=== PATIENT | male | born 1945 | race Caucasian/White ===

== ENCOUNTER 2021-08-06 09:05 | Inpatient (IN) | payer OTHER, MEDICARE ==
[~2021-08-06] VITALS: Ht 193 cm; Wt 120.0 kg
[~2021-08-06 09:05] MED LIST: ALPR0.257 PO; ASPI-611 PO; ATOR40TA71 PO; CYCL-1 PO; DILT180C90 PO; LISI10TA27 PO; MELO-102 PO; METF500T PO; METO50TA17 PO; MULT-687 PO; NITR0.4T51 SL; SERT-434 PO
[2021-08-06] MEDS ORDERED: acetaminophen 325mg tablet PO STA (10:53)
[2021-08-06] MEDS ORDERED: normal saline 1000ML IV soln IV ONE (10:55)
[2021-08-06 11:10] LABS: BASOPHILS % (AUTO) 0.1 % (0-1); EOSINOPHILS % (AUTO) 0 % (0-6); HEMATOCRIT 43.6 % (42.0-52.0); HEMOGLOBIN 14.5 g/dl (14.0-17.9); LYMPHOCYTES # (AUTO) 0.3 X10'3 (1.1-4.8); LYMPHOCYTES % (AUTO) 3.6 % (21-51); MEAN CORPUSCULAR HEMOGLOBIN 30.2 PG (27.0-31.0); MEAN CORPUSCULAR HGB CONC 33.3 g/dL (33.0-36.5); MEAN CORPUSCULAR VOLUME 90.9 FL (78-98); MEAN PLATELET VOLUME 9.3 FL (7.4-10.4); MONOCYTES # (AUTO) 0.9 X10'3 (0-0.9); MONOCYTES % (AUTO) 12.9 % (2-12); NEUTROPHILS # (AUTO) 5.8 X10'3 (1.8-7.7); NEUTROPHILS % (AUTO) 83.4 % (42-75); PLATELET COUNT 240 X10'3 (140-440); RED CELL DISTRIBUTION WIDTH 13.9 % (11.5-14.5)
[2021-08-06] MEDS ORDERED: ondansetron/PF 4mg/2ml inj IV ONE (11:20)
[2021-08-06 11:27] LABS: ALANINE AMINOTRANSFERASE 17 U/L (12-78); ALBUMIN 3.5 G/DL (3.4-5.0); ALBUMIN/GLOBULIN RATIO 0.8 (1.1-1.5); ALKALINE PHOSPHATASE 71 IU/L (46-116); ANION GAP 13 (8-16); ASPARTATE AMINO TRANSFERASE 11 U/L (10-37); BILIRUBIN,TOTAL 0.9 MG/DL (0.1-1.0); BLOOD UREA NITROGEN 62 MG/DL (7-18); BUN/CREATININE RATIO 23.5 (5.4-32.0); CALCIUM 9.2 MG/DL (8.5-10.1); CHLORIDE 102 MMOL/L (99-107); CREATININE 2.64 MG/DL (0.60-1.10); GLUCOSE 199 MG/DL (70-104); POTASSIUM 4.3 MMOL/L (3.5-5.1); SODIUM 141 MMOL/L (135-145); TOTAL CARBON DIOXIDE 26.2 MMOL/L (24-32); TOTAL PROTEIN 7.7 G/DL (6.4-8.2); eGFR 24 ML/MIN
[2021-08-06] MEDS ORDERED: metroNIDAZOLE-Flagyl 500mg/NS 100 ML IV STA (13:02)
[2021-08-06] MEDS ORDERED: CefTRIAXone 2gm/D5W 50ml BAG 50 ML IV ONE (13:05)
[2021-08-06] MEDS ORDERED: QUET100T34 PO (13:36)
[2021-08-06] MEDS ORDERED: HYDR-3973 PO (13:36)
[2021-08-06] MEDS ORDERED: LISI20TA28 PO (13:36)
[2021-08-06] MEDS ORDERED: NITR0.4T51 SL (13:36)
[2021-08-06] MEDS ORDERED: METO-395 PO (13:36)
[2021-08-06] MEDS ORDERED: nitroGLYCERIN 0.4mg SUBLingual tab SL PRN (14:15)
[2021-08-06] MEDS ORDERED: magnesium Cl slow-release 64mg tablet PO PRN (14:30)
[2021-08-06] MEDS ORDERED: magnesium 4gm in 100ml NS 100 ML IV PRN (14:30)
[2021-08-06] MEDS ORDERED: magnesium hydroxide 30ml (MOM) UD suspension PO PRN (14:30)
[2021-08-06] MEDS ORDERED: ondansetron/PF 4mg/2ml inj IV PRN (14:30)
[2021-08-06] MEDS ORDERED: bisacodyl 10mg suppository rectal RC PRN (14:30)
[2021-08-06] MEDS ORDERED: diphenhydrAMINE 25mg capsule PO PRN (14:30)
[2021-08-06] MEDS ORDERED: acetaminophen 325mg tablet PO PRN ×2 (14:30)
[2021-08-06] MEDS ORDERED: HYDROcodone/acetaminophen 10/325mg tab PO PRN (14:30)
[2021-08-06] MEDS ORDERED: acetaminophen 650mg rectal suppository RC PRN (14:30)
[2021-08-06] MEDS ORDERED: morphine 2 MG/ML inj. syringe IV PRN (14:30)
[2021-08-06] MEDS ORDERED: potassium Cl 40MEQ/1/2NS 520ml 520 ML IV PRN ×2 (14:30)
[2021-08-06] MEDS ORDERED: mag hydrox/Alum hydrox/simeth 30ml oral suspension PO PRN (14:30)
[2021-08-06] MEDS ORDERED: magnesium 2GM in 50ml NS 50 ML IV PRN (14:30)
[2021-08-06] MEDS ORDERED: potassium Cl 20 mEq SR tablet PO PRN ×2 (14:30)
[2021-08-06] MEDS ORDERED: HYDROcodone/acetaminophen 5mg/325mg tablet PO PRN (14:30)
[2021-08-06 15:11] LABS: HEMOGLOBIN A1C 6.1 % (4.5-6.2)
[2021-08-06] MEDS ORDERED: LIDOcaine 2% 10ml TOPICAL JELLY (Urojet) MM STA (17:22)
[2021-08-06] MEDS ORDERED: FLU VACC QS2021-22(6MOS UP)/PF 60 MCG/0.5 ML SYRINGE IM ONE (17:23)
--- NOTE | 2021-08-06 17:49 | NUR ---
attempted to insert NG tube to right nostril however as RN was advancing the tube,pateint started projectile vomiting,primary RN made aware,no prn for nausea and vomiting. Lamberto GLASGOW.
[2021-08-06] MEDS: normal saline 1000ml 1,000 ML IV SCH (18:17)
[2021-08-06] MEDS ORDERED: metoclopramide 5 mg/ml inj IV ONE (19:00)
[2021-08-06] MEDS ORDERED: metoclopramide 5 mg/ml inj IV PRN (19:00)
--- NOTE | 2021-08-06 19:02 | NUR ---
spoke with Dr. ray,made aware about patient's projectile vomiting after attempting ng placement.Md said he will order reglan.
--- NOTE | 2021-08-06 19:38 | NUR ---
NG Tube placed Left Nostril: 1000 mL of gastric output.
--- NOTE | 2021-08-06 19:40 | NUR ---
Pt report given to NUZHAT Fuentes. Pt is now being transported to the floor.
--- NOTE | 2021-08-06 19:41 | NUR ---
Received report from [facility]. Patient to arrive soon to unit.
--- NOTE | 2021-08-06 19:50 | NUR ---
Patient arrived from the ER via gurney. Patient transferred over to bed and NG suction hooked back up. 750cc dark green bile immediately suctioned to canister. Patients had accompanied patient and collected most of his belongings up to take home. 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
[2021-08-06] MEDS: docusate sod 100mg capsule PO SCH (20:00)
[2021-08-06] MEDS: K and/or MAG REPLACEMENT MC SCH (20:00)
[2021-08-06 20:05] VITALS: BP 86/50
[2021-08-06 20:10] VITALS: BP 93/55
[2021-08-06] MEDS: diatr meglu/diatrizoate 30ml oral sol.-(3 dose) bottle PO SCH (23:19)
[2021-08-06] MEDS: quetiapine 100mg tablet PO SCH (23:19)
[2021-08-06] MEDS: heparin, porcine 5000 units/ml vial SQ SCH (23:20)
[2021-08-06] MEDS: metroNIDAZOLE-Flagyl 500mg/NS 100 ML IV SCH (23:20)
[2021-08-06 23:30] VITALS: BP 134/72
[2021-08-07] MEDS: normal saline 1000ml 1,000 ML IV SCH ×3 (00:30→21:14)
[2021-08-07 00:55] LABS: CLARITY,URINE SLIGHTLY CLOUDY (Clear); COLOR,URINE YELLOW (Yellow); UA COLLECTION TYPE URINAL
[2021-08-07 00:56] LABS: GLUCOSE, URINE NEGATIVE (Neg); KETONES,URINE NEGATIVE (Neg); LEUKOCYTE ESTERASE ,URINE NEGATIVE (Neg); NITRITES, URINE NEGATIVE (Neg); OCCULT BLOOD,URINE NEGATIVE (Neg); PROTEIN,URINE TRACE mg/dl (Neg); UROBILINOGEN,URINE 0.2 E.U/dL (0.2-1.0)
--- NOTE | 2021-08-07 01:00 | NUR ---
Urine sample taken down to lab.
[2021-08-07 01:04] LABS: URIC ACID CRYSTALS FEW /HPF (NEGATIVE)
[2021-08-07 01:05] LABS: BACTERIA,URINE 1+ /HPF (Neg); RBC,URINE 0-2 /HPF (0-2); SQUAMOUS EPITHELIAL CELL,UR FEW /LPF (FEW)
--- NOTE | 2021-08-07 06:45 | NUR ---
Problems reprioritized. Patient report given, questions answered & plan of care reviewed with Colleen NOLAND.
[2021-08-07 07:00] VITALS: BP 146/86
[2021-08-07 07:07] LABS: BASOPHILS % (AUTO) 0.1 % (0-1); EOSINOPHILS % (AUTO) 0.1 % (0-6); HEMATOCRIT 36.8 % (42.0-52.0); HEMOGLOBIN 12.4 g/dl (14.0-17.9); LYMPHOCYTES # (AUTO) 0.4 X10'3 (1.1-4.8); LYMPHOCYTES % (AUTO) 5.8 % (21-51); MEAN CORPUSCULAR HEMOGLOBIN 30.6 PG (27.0-31.0); MEAN CORPUSCULAR HGB CONC 33.7 g/dL (33.0-36.5); MEAN CORPUSCULAR VOLUME 90.6 FL (78-98); MEAN PLATELET VOLUME 9.8 FL (7.4-10.4); MONOCYTES # (AUTO) 0.6 X10'3 (0-0.9); MONOCYTES % (AUTO) 8.1 % (2-12); NEUTROPHILS # (AUTO) 5.9 X10'3 (1.8-7.7); NEUTROPHILS % (AUTO) 85.9 % (42-75); PLATELET COUNT 174 X10'3 (140-440); RED BLOOD COUNT 4.06 X10'6 (4.70-6.10); RED CELL DISTRIBUTION WIDTH 14.2 % (11.5-14.5); WHITE BLOOD COUNT 6.8 X10'3 (4.5-11.0)
--- NOTE | 2021-08-07 07:07 | NUR ---
Patient in room [facility] 355. I have received report from Delphine NOLAND and had the opportunity to ask questions and assume patient care.
[2021-08-07 07:23] LABS: ALANINE AMINOTRANSFERASE 11 U/L (12-78); ALBUMIN 2.5 G/DL (3.4-5.0); ALBUMIN/GLOBULIN RATIO 0.7 (1.1-1.5); ALKALINE PHOSPHATASE 51 IU/L (46-116); ANION GAP 10 (8-16); ASPARTATE AMINO TRANSFERASE 8 U/L (10-37); BILIRUBIN,TOTAL 0.5 MG/DL (0.1-1.0); BLOOD UREA NITROGEN 67 MG/DL (7-18); BUN/CREATININE RATIO 33.2 (5.4-32.0); CALCIUM 8.1 MG/DL (8.5-10.1); CHLORIDE 107 MMOL/L (99-107); CHOL/HDL RATIO 2.8 (0.00-4.99); CHOLESTEROL 104 MG/DL (0-200); CREATININE 2.02 MG/DL (0.60-1.10); GLUCOSE 184 MG/DL (70-104); HDL CHOLESTEROL 37 MG/DL (35-60); LDL CHOLESTEROL 44 MG/DL (50-100); MAGNESIUM 2.1 MG/DL (1.5-2.4); POTASSIUM 3.6 MMOL/L (3.5-5.1); SODIUM 145 MMOL/L (135-145); TOTAL CARBON DIOXIDE 27.6 MMOL/L (24-32); TOTAL PROTEIN 5.9 G/DL (6.4-8.2); TRIGLYCERIDES 98 MG/DL (20-135); eGFR 32 ML/MIN
[2021-08-07 07:36] LABS: PLATELET ESTIMATE NORMAL; TOTAL CELLS COUNTED 100
[2021-08-07] MEDS: K and/or MAG REPLACEMENT MC SCH ×2 (08:00→20:00)
[2021-08-07] MEDS: lisinopril 20mg tablet PO SCH (08:00)
[2021-08-07] MEDS ORDERED: Meloxicam 15 MG TAB PO SCH (08:00)
[2021-08-07] MEDS: heparin, porcine 5000 units/ml vial SQ SCH ×2 (08:00→21:15)
[2021-08-07] MEDS ORDERED: aspirin 81mg, enteric-coated 1 TAB TABLET.DR PO SCH (08:00)
[2021-08-07] MEDS: docusate sod 100mg capsule PO SCH ×2 (08:00→20:00)
[2021-08-07] MEDS ORDERED: atorvastatin 20mg tablet PO SCH (08:00)
[2021-08-07] MEDS: diatr meglu/diatrizoate 30ml oral sol.-(3 dose) bottle PO SCH ×2 (08:02→10:33)
[2021-08-07] MEDS: multivitamins, therapeutics tablet PO SCH (08:02)
[2021-08-07] MEDS: metoprolol succinate 25mg (24-HOUR) SR. Tablet PO SCH (08:02)
[2021-08-07] MEDS: diltiazem CD 180mg cap (once-daily) PO SCH (08:02)
[2021-08-07] MEDS: CefTRIAXone/D5W-Rocephin 1gm 50 ML IV SCH (08:03)
[2021-08-07] MEDS: metroNIDAZOLE-Flagyl 500mg/NS 100 ML IV SCH ×3 (08:04→23:56)
[2021-08-07 11:00] VITALS: BP 143/81
--- NOTE | 2021-08-07 14:25 | NUR ---
PAGER ID: [phone] MESSAGE: Indra Merchant 355B- FYI - Ct results are available, also orthostatic are as follow Supine-132/82 HR 96, Standing 78/45 HR 112. Thank you Colleen Bernard [id number] Surgical
[2021-08-07] MEDS: sertraline 50mg tablet PO SCH (14:45)
--- NOTE | 2021-08-07 17:54 | NUR ---
PAGER ID: [phone] MESSAGE: Indra Merchant 355B- Pt's family at bed side, upset and want to speak to you about plan of care, CT results. Please advise. Thank you so much. Colleen Bernard 2016
--- NOTE | 2021-08-07 18:36 | NUR ---
Problems reprioritized. Patient report given, questions answered & plan of care reviewed with Paulo NOLAND.
--- NOTE | 2021-08-07 18:45 | NUR ---
Patient in room [facility] 355. I have received report from Colleen NOLAND and had the opportunity to ask questions and assume patient care.
[2021-08-07 20:22] VITALS: BP 131/83
[2021-08-07] MEDS: quetiapine 100mg tablet PO SCH (21:15)
[2021-08-08] VITALS (7 sets, daily range): BP systolic 88–185; BP diastolic 51–91
[2021-08-08 06:19] LABS: BASOPHILS % (AUTO) 0.2 % (0-1); EOSINOPHILS # (AUTO) 0.1 X10'3 (0-0.9); EOSINOPHILS % (AUTO) 2.3 % (0-6); HEMATOCRIT 36.1 % (42.0-52.0); HEMOGLOBIN 12.5 g/dl (14.0-17.9); LYMPHOCYTES # (AUTO) 0.7 X10'3 (1.1-4.8); LYMPHOCYTES % (AUTO) 11.7 % (21-51); MEAN CORPUSCULAR HEMOGLOBIN 30.7 PG (27.0-31.0); MEAN CORPUSCULAR HGB CONC 34.5 g/dL (33.0-36.5); MEAN PLATELET VOLUME 9.5 FL (7.4-10.4); MONOCYTES # (AUTO) 0.7 X10'3 (0-0.9); NEUTROPHILS # (AUTO) 4.3 X10'3 (1.8-7.7); NEUTROPHILS % (AUTO) 73.8 % (42-75); PLATELET COUNT 179 X10'3 (140-440); RED BLOOD COUNT 4.05 X10'6 (4.70-6.10); WHITE BLOOD COUNT 5.8 X10'3 (4.5-11.0)
[2021-08-08 06:34] LABS: ALANINE AMINOTRANSFERASE 12 U/L (12-78); ALBUMIN 2.3 G/DL (3.4-5.0); ALBUMIN/GLOBULIN RATIO 0.6 (1.1-1.5); ALKALINE PHOSPHATASE 47 IU/L (46-116); ANION GAP 4 (8-16); ASPARTATE AMINO TRANSFERASE 11 U/L (10-37); BILIRUBIN,TOTAL 0.5 MG/DL (0.1-1.0); BLOOD UREA NITROGEN 45 MG/DL (7-18); BUN/CREATININE RATIO 38.1 (5.4-32.0); CALCIUM 8.5 MG/DL (8.5-10.1); CHLORIDE 108 MMOL/L (99-107); CREATININE 1.18 MG/DL (0.60-1.10); GLUCOSE 140 MG/DL (70-104); MAGNESIUM 2.2 MG/DL (1.5-2.4); PHOSPHORUS 1.8 MG/DL (2.3-4.5); POTASSIUM 3.2 MMOL/L (3.5-5.1); SODIUM 147 MMOL/L (135-145); TOTAL PROTEIN 5.9 G/DL (6.4-8.2); eGFR 60 ML/MIN
--- NOTE | 2021-08-08 07:05 | NUR ---
Problems reprioritized. Patient report given, questions answered & plan of care reviewed with Nancy NOLAND.
--- NOTE | 2021-08-08 07:14 | NUR ---
Sent message to Pharmacy to send IV replacement K+ bag for level of 3.2
--- NOTE | 2021-08-08 07:27 | NUR ---
Patient in room [facility] 355. I have received report from Paulo NOLAND and had the opportunity to ask questions and assume patient care.
[2021-08-08] MEDS: lisinopril 20mg tablet PO SCH (08:00)
[2021-08-08] MEDS: diltiazem CD 180mg cap (once-daily) PO SCH (08:00)
[2021-08-08] MEDS: K and/or MAG REPLACEMENT MC SCH ×2 (08:00→19:09)
--- NOTE | 2021-08-08 08:53 | NUR ---
PAGER ID: [phone] MESSAGE: [facility] Please call re + BC, + orthostatics, BP meds.
[2021-08-08] MEDS: docusate sod 100mg capsule PO SCH ×2 (08:56→20:00)
[2021-08-08] MEDS: sertraline 50mg tablet PO SCH (08:56)
[2021-08-08] MEDS: multivitamins, therapeutics tablet PO SCH (08:56)
[2021-08-08] MEDS: heparin, porcine 5000 units/ml vial SQ SCH ×2 (08:59→20:38)
[2021-08-08] MEDS: metroNIDAZOLE-Flagyl 500mg/NS 100 ML IV SCH ×2 (08:59→16:29)
[2021-08-08] MEDS: normal saline 1000ml 1,000 ML IV SCH ×2 (09:19→16:44)
--- NOTE | 2021-08-08 10:01 | NUR ---
PAGER ID: [phone] MESSAGE: Nancy-Surg [id number] Re: Mayur 355B please call re: pain medications with his + orthostatics and questions re: BP medications
[2021-08-08] MEDS ORDERED: albumin (Human) 5% 250ml 250 ML IV ONE ×2 (10:10)
[2021-08-08] MEDS: CefTRIAXone/D5W-Rocephin 1gm 50 ML IV SCH (10:18)
--- NOTE | 2021-08-08 10:30 | NUR ---
Clamped NG Tube per MD orders
--- NOTE | 2021-08-08 10:35 | NUR ---
PAGER ID: [phone] MESSAGE: Nancy Surg [id number] Re: Mayur 355B Patient is currently in AFIB with no history held BP meds this am due to + orthostatics. please call
[2021-08-08] MEDS ORDERED: diltiazem-NS 100mg/100ml 100 ML IV SCH (11:20)
[2021-08-08] MEDS ORDERED: benzocaine/menthol oral lozeng 1 EACH BOX MM PRN (11:20)
[2021-08-08] MEDS ORDERED: normal saline 500ml IV soln 500 ML IV ONE (11:20)
[2021-08-08] MEDS ORDERED: diltiazem 5mg/ml 5ml inj. IV ONE (11:20)
[2021-08-08] MEDS: metoprolol succinate 25mg (24-HOUR) SR. Tablet PO SCH (11:25)
--- NOTE | 2021-08-08 12:36 | NUR ---
Dr Guzman aware distilling department supervisor is working on a bed on Tele so patients Cardizem drip has not been started.
[2021-08-08] MEDS: vancomycin/NS 1 GM ADD-VANTAGE 250 ML IV SCH (12:58)
--- NOTE | 2021-08-08 14:55 | NUR ---
Patient report called to Merced NOLAND all questions answered. Patient transferred via hospital bed with all his belongings and at bedside.
--- NOTE | 2021-08-08 15:00 | NUR ---
Patient in room [facility] 355. I have received report from Nancy NOLAND and had the opportunity to ask questions and assume patient care. Patient is transferring from surg to pcu.
--- NOTE | 2021-08-08 15:44 | NUR ---
Pt arrived from [facility] by bed. A&OX4, first set of vitals done, 2 RN skin check done.
--- NOTE | 2021-08-08 15:47 | NUR ---
Paged Dr Guzman PAGER ID: [phone] MESSAGE: Leyla MerchantIndra [id number] Pt just arrived from med/surg, hooked up to tele and is in sinus rhythm HR 80's. Please advise regarding Cardizem orders. Thank you Selene [phone]
--- NOTE | 2021-08-08 17:10 | NUR ---
Paged Dr Carlos to discuss NG tube. NG tube was clamped for 4 hours, unclamped for 2 hours and had a total of 50ml output on continuous low suction.
--- NOTE | 2021-08-08 18:12 | NUR ---
[place] Medication Administration: For this medication-pass time frame, all medication were reviewed, dispensed, administered and documented per hospital policy by NUZHAT Blackwood.
--- NOTE | 2021-08-08 18:12 | NUR ---
[place] documentation: I have reviewed and agree with all interventions, assessments performed and documented by NUZHAT Blackwood.
--- NOTE | 2021-08-08 18:24 | NUR ---
Problems reprioritized. Patient report given, questions answered & plan of care reviewed with NUZHAT Perry. Pt sitting up in bedside chair. No signs of distress, all pt needs met at this time.
--- NOTE | 2021-08-08 18:24 | NUR ---
Problems reprioritized. Patient report given, questions answered & plan of care reviewed with Veronica Dudley.
[2021-08-08] MEDS: quetiapine 100mg tablet PO SCH (20:38)
[2021-08-09] MEDS: vancomycin/NS 1 GM ADD-VANTAGE 250 ML IV SCH ×2 (00:20→13:00)
[2021-08-09] MEDS: morphine 2 MG/ML inj. syringe IV PRN ×2 (00:20→09:22)
--- NOTE | 2021-08-09 00:33 | NUR ---
210cc output at only 3hrs of low continuous suction of NG tube. Per Dr. Barron if output is greater than 150cc at 4hrs. keep NG in place and keep on low continuous suction. pt states he is passing gas and did have a BM at start of shift that was loose. bowel sounds are hypoactive in all quadrants.
[2021-08-09] MEDS: metroNIDAZOLE-Flagyl 500mg/NS 100 ML IV SCH ×2 (00:35→09:23)
--- NOTE | 2021-08-09 01:14 | NUR ---
Pt says he is depressed about having >150cc of output in suction canister. He was redirected using therapeutic communication.
[2021-08-09 02:00] VITALS: BP 167/79
[2021-08-09] MEDS: normal saline 1000ml 1,000 ML IV SCH ×2 (02:13→05:59)
--- NOTE | 2021-08-09 05:51 | NUR ---
620cc output total (in 8hrs) from NG low continuous suction since suction was initiated at 2145.
[2021-08-09 06:00] VITALS: BP 153/80
--- NOTE | 2021-08-09 06:22 | NUR ---
Patient in room PCU 3018. I have received report from NUZHAT Miranda and had the opportunity to ask questions and assume patient care.
[2021-08-09 06:33] LABS: BASOPHILS % (AUTO) 0.2 % (0-1); EOSINOPHILS # (AUTO) 0.2 X10'3 (0-0.9); EOSINOPHILS % (AUTO) 2.2 % (0-6); HEMATOCRIT 34.8 % (42.0-52.0); HEMOGLOBIN 11.8 g/dl (14.0-17.9); LYMPHOCYTES # (AUTO) 0.9 X10'3 (1.1-4.8); LYMPHOCYTES % (AUTO) 10.9 % (21-51); MEAN CORPUSCULAR HEMOGLOBIN 30.5 PG (27.0-31.0); MEAN CORPUSCULAR VOLUME 89.7 FL (78-98); MEAN PLATELET VOLUME 9.4 FL (7.4-10.4); MONOCYTES # (AUTO) 0.5 X10'3 (0-0.9); MONOCYTES % (AUTO) 6.6 % (2-12); NEUTROPHILS # (AUTO) 6.4 X10'3 (1.8-7.7); NEUTROPHILS % (AUTO) 80.1 % (42-75); PLATELET COUNT 197 X10'3 (140-440); RED BLOOD COUNT 3.89 X10'6 (4.70-6.10); RED CELL DISTRIBUTION WIDTH 13.7 % (11.5-14.5)
[2021-08-09 07:02] LABS: ALANINE AMINOTRANSFERASE 12 U/L (12-78); ALBUMIN 2.6 G/DL (3.4-5.0); ALBUMIN/GLOBULIN RATIO 0.8 (1.1-1.5); ALKALINE PHOSPHATASE 58 IU/L (46-116); ANION GAP 6 (8-16); ASPARTATE AMINO TRANSFERASE 10 U/L (10-37); BILIRUBIN,TOTAL 0.5 MG/DL (0.1-1.0); BLOOD UREA NITROGEN 33 MG/DL (7-18); BUN/CREATININE RATIO 32.4 (5.4-32.0); CALCIUM 8.5 MG/DL (8.5-10.1); CHLORIDE 112 MMOL/L (99-107); CREATININE 1.02 MG/DL (0.60-1.10); GLUCOSE 125 MG/DL (70-104); MAGNESIUM 2.2 MG/DL (1.5-2.4); PHOSPHORUS 1.8 MG/DL (2.3-4.5); POTASSIUM 3.7 MMOL/L (3.5-5.1); SODIUM 152 MMOL/L (135-145); TOTAL CARBON DIOXIDE 34.4 MMOL/L (24-32); TOTAL PROTEIN 5.9 G/DL (6.4-8.2); eGFR 71 ML/MIN
[2021-08-09 08:00] VITALS: BP_SYST 135; BP_SYST 156; BP_SYST 163; BP_DIAS 85; BP_DIAS 86; BP_DIAS 95
[2021-08-09] MEDS: docusate sod 100mg capsule PO SCH ×2 (08:00→20:51)
[2021-08-09] MEDS: K and/or MAG REPLACEMENT MC SCH ×2 (08:00→20:00)
[2021-08-09] MEDS: metoprolol succinate 25mg (24-HOUR) SR. Tablet PO SCH (09:19)
[2021-08-09] MEDS: multivitamins, therapeutics tablet PO SCH (09:19)
[2021-08-09] MEDS: sertraline 50mg tablet PO SCH (09:19)
[2021-08-09] MEDS: heparin, porcine 5000 units/ml vial SQ SCH (09:23)
[2021-08-09] MEDS: CefTRIAXone/D5W-Rocephin 1gm 50 ML IV SCH (09:24)
[2021-08-09] MEDS: diltiazem CD 180mg cap (once-daily) PO SCH (09:28)
[2021-08-09 11:00] VITALS: BP 163/85
--- NOTE | 2021-08-09 12:06 | NUR ---
Informed Dr Gumzan of pt SBP variance during orthostatic vital check: PAGER ID: [phone] MESSAGE: Gregor Merchant [id number] FYI pt positive for orthostatic hypotension again today total SBP variance 28 mm hg. Sharon [phone]
[2021-08-09] MEDS: dextrose 5%-water 1,000 ML IV SCH (14:40)
[2021-08-09 15:00] VITALS: BP 142/72
--- NOTE | 2021-08-09 16:22 | NUR ---
Paged Dr. Guzman re: patient diet: PAGER ID: [phone] MESSAGE: Gregor Merchant [id number] NG is out and pt is requesting food. Would you like to add a diet at this time? Sharon [phone]
[2021-08-09] MEDS: piperacillin/tazobactam inj. 3.375 GM in NS 50ml IV SCH (16:57)
--- NOTE | 2021-08-09 18:14 | NUR ---
Problems reprioritized. Patient report given, questions answered & plan of care reviewed with NUZHAT Snyder.
[2021-08-09 20:00] VITALS: BP 161/80
[2021-08-09] MEDS: apixaban 5mg tablet PO SCH (20:51)
[2021-08-09] MEDS: quetiapine 100mg tablet PO SCH (20:51)
[2021-08-09] MEDS ORDERED: VANCOMYCIN LEVEL IV ONE (23:30)
[2021-08-10] VITALS (7 sets, daily range): BP systolic 113–152; BP diastolic 54–95
[2021-08-10] MEDS: piperacillin/tazobactam inj. 3.375 GM in NS 50ml IV SCH ×4 (00:31→23:58)
[2021-08-10] MEDS: vancomycin/NS 1 GM ADD-VANTAGE 250 ML IV SCH ×2 (00:54→13:30)
[2021-08-10] MEDS: dextrose 5%-water 1,000 ML IV SCH (05:40)
--- NOTE | 2021-08-10 05:44 | NUR ---
End of shift note: Pt. w/o complaints through out the night. Patient's abdomen was firm in the beginning of my shift. However, has soften throughout the night. Pt. passing flatus.
--- NOTE | 2021-08-10 06:24 | NUR ---
Patient in room PCU 3018. I have received report from NUZHAT Westbrook and had the opportunity to ask questions and assume patient care.
[2021-08-10 06:25] LABS: BASOPHILS % (AUTO) 0.1 % (0-1); EOSINOPHILS # (AUTO) 0.5 X10'3 (0-0.9); HEMATOCRIT 32.3 % (42.0-52.0); LYMPHOCYTES % (AUTO) 10.6 % (21-51); MEAN CORPUSCULAR HEMOGLOBIN 30.6 PG (27.0-31.0); MEAN CORPUSCULAR HGB CONC 34.1 g/dL (33.0-36.5); MEAN CORPUSCULAR VOLUME 89.6 FL (78-98); MEAN PLATELET VOLUME 9.3 FL (7.4-10.4); MONOCYTES # (AUTO) 0.6 X10'3 (0-0.9); NEUTROPHILS # (AUTO) 7.7 X10'3 (1.8-7.7); NEUTROPHILS % (AUTO) 78.3 % (42-75); PLATELET COUNT 189 X10'3 (140-440); RED BLOOD COUNT 3.61 X10'6 (4.70-6.10); RED CELL DISTRIBUTION WIDTH 13.9 % (11.5-14.5); WHITE BLOOD COUNT 9.8 X10'3 (4.5-11.0)
[2021-08-10 06:59] LABS: ALANINE AMINOTRANSFERASE 7 U/L (12-78); ALBUMIN 2.3 G/DL (3.4-5.0); ALBUMIN/GLOBULIN RATIO 0.8 (1.1-1.5); ALKALINE PHOSPHATASE 44 IU/L (46-116); ANION GAP 7 (8-16); ASPARTATE AMINO TRANSFERASE 10 U/L (10-37); BILIRUBIN,TOTAL 0.5 MG/DL (0.1-1.0); BLOOD UREA NITROGEN 25 MG/DL (7-18); BUN/CREATININE RATIO 26.9 (5.4-32.0); CALCIUM 8.2 MG/DL (8.5-10.1); CHLORIDE 110 MMOL/L (99-107); CREATININE 0.93 MG/DL (0.60-1.10); GLUCOSE 138 MG/DL (70-104); MAGNESIUM 1.9 MG/DL (1.5-2.4); PHOSPHORUS 2.5 MG/DL (2.3-4.5); SODIUM 149 MMOL/L (135-145); TOTAL CARBON DIOXIDE 32.1 MMOL/L (24-32); TOTAL PROTEIN 5.3 G/DL (6.4-8.2); eGFR 79 ML/MIN
[2021-08-10] MEDS ORDERED: potassium Cl 40MEQ/1/2NS 520ml 520 ML IV PRN ×2 (07:05)
[2021-08-10] MEDS ORDERED: potassium Cl 20 mEq SR tablet PO PRN (07:05)
--- NOTE | 2021-08-10 07:09 | NUR ---
[facility] Will replace pt per protocol.
[2021-08-10] MEDS: sertraline 50mg tablet PO SCH (07:51)
[2021-08-10] MEDS: potassium Cl 20 mEq SR tablet PO PRN ×2 (07:51→20:19)
[2021-08-10] MEDS: multivitamins, therapeutics tablet PO SCH (07:52)
[2021-08-10] MEDS: apixaban 5mg tablet PO SCH ×2 (07:52→20:18)
[2021-08-10] MEDS: diltiazem CD 180mg cap (once-daily) PO SCH (07:52)
[2021-08-10] MEDS: metoprolol succinate 25mg (24-HOUR) SR. Tablet PO SCH (07:52)
[2021-08-10] MEDS: docusate sod 100mg capsule PO SCH ×3 (08:00→20:18)
[2021-08-10] MEDS: K and/or MAG REPLACEMENT MC SCH ×5 (08:00→18:45)
[2021-08-10] MEDS ORDERED: magnesium 4gm in 100ml NS 100 ML IV PRN (10:45)
[2021-08-10] MEDS ORDERED: magnesium Cl slow-release 64mg tablet PO PRN (10:45)
[2021-08-10] MEDS: lactobacillus rhamnosus 10,000 MMU CELLS/CAPSULE PO SCH (20:18)
[2021-08-10] MEDS: quetiapine 100mg tablet PO SCH (20:18)
[2021-08-10] MEDS: diatr meglu/diatrizoate 30ml oral sol.-(3 dose) bottle PO SCH (23:58)
[2021-08-11] MEDS: dextrose 5%-water 1,000 ML IV SCH (01:40)
[2021-08-11 02:00] VITALS: BP 124/76
[2021-08-11 06:00] VITALS: BP 127/79
--- NOTE | 2021-08-11 06:28 | NUR ---
Problems reprioritized. Patient report given, questions answered & plan of care reviewed with NUZHAT Argueta.
[2021-08-11 06:44] LABS: BASOPHILS % (AUTO) 0.2 % (0-1); EOSINOPHILS # (AUTO) 0.7 X10'3 (0-0.9); EOSINOPHILS % (AUTO) 6.1 % (0-6); HEMATOCRIT 38.2 % (42.0-52.0); HEMOGLOBIN 12.6 g/dl (14.0-17.9); LYMPHOCYTES # (AUTO) 1.8 X10'3 (1.1-4.8); LYMPHOCYTES % (AUTO) 15.5 % (21-51); MEAN CORPUSCULAR HEMOGLOBIN 29.9 PG (27.0-31.0); MEAN CORPUSCULAR HGB CONC 33.1 g/dL (33.0-36.5); MEAN CORPUSCULAR VOLUME 90.4 FL (78-98); MEAN PLATELET VOLUME 9.5 FL (7.4-10.4); MONOCYTES # (AUTO) 0.9 X10'3 (0-0.9); MONOCYTES % (AUTO) 7.3 % (2-12); NEUTROPHILS # (AUTO) 8.4 X10'3 (1.8-7.7); NEUTROPHILS % (AUTO) 70.9 % (42-75); PLATELET COUNT 228 X10'3 (140-440); RED BLOOD COUNT 4.22 X10'6 (4.70-6.10); RED CELL DISTRIBUTION WIDTH 13.8 % (11.5-14.5); WHITE BLOOD COUNT 11.8 X10'3 (4.5-11.0)
[2021-08-11 06:48] LABS: ALANINE AMINOTRANSFERASE 22 U/L (12-78); ALBUMIN 2.6 G/DL (3.4-5.0); ALBUMIN/GLOBULIN RATIO 0.8 (1.1-1.5); ALKALINE PHOSPHATASE 63 IU/L (46-116); ANION GAP 10 (8-16); ASPARTATE AMINO TRANSFERASE 28 U/L (10-37); BILIRUBIN,TOTAL 0.4 MG/DL (0.1-1.0); BLOOD UREA NITROGEN 17 MG/DL (7-18); BUN/CREATININE RATIO 15.7 (5.4-32.0); CALCIUM 8.6 MG/DL (8.5-10.1); CHLORIDE 110 MMOL/L (99-107); CREATININE 1.08 MG/DL (0.60-1.10); GLUCOSE 134 MG/DL (70-104); MAGNESIUM 1.8 MG/DL (1.5-2.4); PHOSPHORUS 2.9 MG/DL (2.3-4.5); POTASSIUM 3.8 MMOL/L (3.5-5.1); SODIUM 146 MMOL/L (135-145); TOTAL CARBON DIOXIDE 26.5 MMOL/L (24-32); TOTAL PROTEIN 5.9 G/DL (6.4-8.2); eGFR 66 ML/MIN
[2021-08-11] MEDS: diatr meglu/diatrizoate 30ml oral sol.-(3 dose) bottle PO SCH ×2 (07:28→09:53)
[2021-08-11] MEDS: piperacillin/tazobactam inj. 3.375 GM in NS 50ml IV SCH ×2 (07:28→16:40)
[2021-08-11] MEDS: diltiazem CD 180mg cap (once-daily) PO SCH (07:28)
[2021-08-11] MEDS: multivitamins, therapeutics tablet PO SCH (07:29)
[2021-08-11] MEDS: docusate sod 100mg capsule PO SCH ×2 (07:29→20:09)
[2021-08-11] MEDS: metoprolol succinate 25mg (24-HOUR) SR. Tablet PO SCH (07:29)
[2021-08-11] MEDS: apixaban 5mg tablet PO SCH ×2 (07:29→20:09)
[2021-08-11] MEDS: lactobacillus rhamnosus 10,000 MMU CELLS/CAPSULE PO SCH ×2 (07:29→20:09)
[2021-08-11] MEDS: sertraline 50mg tablet PO SCH (07:30)
[2021-08-11] MEDS: K and/or MAG REPLACEMENT MC SCH ×6 (07:31→20:00)
--- NOTE | 2021-08-11 10:30 | NUR ---
Initial: Pt admitted w/ increasing abd pain and vomiting, found to have SBO per EMR; no surgical intervention at this time. Pt on Full liquid diet 08/10 eating 100%; recommend advance to regular diet per MD discretion. LBM 08/10. Will continue to monitor PO trend upon diet advancement and make recommendations as appropriate. Recs: 1. Advance to Regular diet per MD discretion 2. Bowel care per rx 3. Weekly wts Addendum: 08/11/21 at [address] Amended: Links added.
[2021-08-11 12:00] VITALS: BP_SYST 119; BP_SYST 137; BP_SYST 150; BP_DIAS 71; BP_DIAS 78
[2021-08-11 15:00] VITALS: BP 163/99
[2021-08-11 18:00] VITALS: BP 145/92
--- NOTE | 2021-08-11 18:30 | NUR ---
Report given to Traveler RN, all questions answered. No current concerns, no distress. pt doing well. Waiting for dinner tray.
[2021-08-11] MEDS: quetiapine 100mg tablet PO SCH (20:15)
[2021-08-11 22:00] VITALS: BP 145/88
[2021-08-12] MEDS: piperacillin/tazobactam inj. 3.375 GM in NS 50ml IV SCH ×2 (00:40→07:53)
[2021-08-12 02:00] VITALS: BP 156/86
[2021-08-12 06:00] VITALS: BP 155/92
[2021-08-12] MEDS: sertraline 50mg tablet PO SCH (07:54)
[2021-08-12] MEDS: apixaban 5mg tablet PO SCH (07:55)
[2021-08-12] MEDS: metoprolol succinate 25mg (24-HOUR) SR. Tablet PO SCH (07:55)
[2021-08-12] MEDS: docusate sod 100mg capsule PO SCH (07:55)
[2021-08-12] MEDS: diltiazem CD 180mg cap (once-daily) PO SCH (07:55)
[2021-08-12] MEDS: multivitamins, therapeutics tablet PO SCH (07:55)
[2021-08-12] MEDS: lactobacillus rhamnosus 10,000 MMU CELLS/CAPSULE PO SCH (07:55)
[2021-08-12] MEDS: K and/or MAG REPLACEMENT MC SCH ×3 (07:57→07:58)
[2021-08-12 08:00] VITALS: BP_SYST 126; BP_SYST 130; BP_SYST 135; BP_DIAS 86; BP_DIAS 94; BP_DIAS 97
[2021-08-12] MEDS: lisinopril 20mg tablet PO SCH (08:23)
[2021-08-12 11:00] VITALS: BP 126/74
[2021-08-12] MEDS ORDERED: CIPR-202 PO (11:58)
[2021-08-12] MEDS ORDERED: LACT1CAP26 PO (11:58)
[2021-08-12] MEDS ORDERED: METR-159 PO (11:58)
[2021-08-12] MEDS ORDERED: APIX5TAB3 PO (11:58)
--- NOTE | 2021-08-12 13:45 | NUR ---
Patient stable and comfortable at time of discharge, removed telemetry and PIV with cannula intact. No redness or irritation at PIV site. Gathered all patient valuables in a bag and gave to patient at discharge. 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 Gave and discussed in detail all patient discharge information and discharge education. Patient and family member were able to ask questions and get answers regarding patient discharge information and discharge education. Patient and family member were able to verbalize back all patient discharge information and discharge education. Patient was wheeled to lobby in wheelchair by staff accompanied by family member. Patient left hospital in private car with family member, valuables, and patient discharge information and discharge education
== END 2021-08-12 13:45 | disposition home or self-care (01) | DRG 872 ==
LOC: ER 09:06 → ED HOLD 14:49 → SUR 3N 19:50 → PCU 3S 08-08 15:00
PROVIDERS: ADMIT Family Medicine; ATTEND Family Medicine
PROC: 0D9670Z Drainage of Stomach with Drainage Device, Via Natural or Artificial Opening (ICD-10-PCS; principal; 2021-08-07)
DX: A41.9 Sepsis, unspecified organism (principal); K56.600 Partial intestinal obstruction, unspecified as to cause; E87.0 Hyperosmolality and hypernatremia; N17.9 Acute kidney failure, unspecified; I69.351 Hemiplegia and hemiparesis following cerebral infarction affecting right dominant side; E78.00 Pure hypercholesterolemia, unspecified; K52.9 Noninfective gastroenteritis and colitis, unspecified; I10 Essential (primary) hypertension; Z20.822 Contact with and (suspected) exposure to COVID-19; E86.0 Dehydration; E78.5 Hyperlipidemia, unspecified; I25.10 Atherosclerotic heart disease of native coronary artery without angina pectoris; I48.0 Paroxysmal atrial fibrillation; I69.392 Facial weakness following cerebral infarction; Z68.32 Body mass index [BMI] 32.0-32.9, adult; Z88.0 Allergy status to penicillin; Z79.899 Other long term (current) drug therapy
CPT/HCPCS: 36415; 71045; 74176; 80053; 80061; 80202; 81001; 83036; 83605; 83735; 84100; 84132; 84145; 84443; 85007; 85025; 87040; 87077; 87081; 87088; 87635; 93005; 96361; 96374; 96375; 97110; 97161; 97530; 99285; C9803; G0378; J0696; J1644; J2270; J2405; J2543; J2765; J3370; J3480; J3490; J7030; J7040; J7070; P9045; Q9963

== ENCOUNTER 2022-03-01 14:30 | Inpatient (IN) | payer BC, MEDICARE ==
[~2022-03-01] VITALS: Ht 193 cm; Wt 133.2 kg
[~2022-03-01 14:30] MED LIST changes: -ALPR0.257 PO; -ASPI-611 PO; -CYCL-1 PO; +HYDR-3973 PO; -LISI10TA27 PO; -MELO-102 PO; -METF500T PO; -METO50TA17 PO; +QUET100T34 PO; +RIVA20TA PO
--- NOTE | 2022-03-01 15:22 | NUR ---
PATIENT DENIES CHEST PAIN AT THIS TIME,CALL LIGHT WITHIN REACH.
[2022-03-01 15:46] LABS: BASOPHILS % (AUTO) 0.2 % (0-1); EOSINOPHILS # (AUTO) 0.1 X10'3 (0-0.9); EOSINOPHILS % (AUTO) 1.6 % (0-6); HEMATOCRIT 31.3 % (42.0-52.0); HEMOGLOBIN 10.3 g/dl (14.0-17.9); LYMPHOCYTES # (AUTO) 0.4 X10'3 (1.1-4.8); LYMPHOCYTES % (AUTO) 5.1 % (21-51); MEAN CORPUSCULAR HGB CONC 32.8 g/dL (33.0-36.5); MEAN CORPUSCULAR VOLUME 91.6 FL (78-98); MEAN PLATELET VOLUME 8.4 FL (7.4-10.4); MONOCYTES # (AUTO) 0.6 X10'3 (0-0.9); MONOCYTES % (AUTO) 7.5 % (2-12); NEUTROPHILS % (AUTO) 85.6 % (42-75); PLATELET COUNT 214 X10'3 (140-440); RED BLOOD COUNT 3.42 X10'6 (4.70-6.10); RED CELL DISTRIBUTION WIDTH 18.1 % (11.5-14.5); WHITE BLOOD COUNT 8.1 X10'3 (4.5-11.0)
--- NOTE | 2022-03-01 15:49 | NUR ---
SPOUSE AT BEDSIDE.
[2022-03-01 15:59] LABS: ALANINE AMINOTRANSFERASE 13 U/L (12-78); ALBUMIN 1.9 G/DL (3.4-5.0); ALBUMIN/GLOBULIN RATIO 0.4 (1.1-1.5); ALKALINE PHOSPHATASE 161 IU/L (46-116); ANION GAP 5 (8-16); ASPARTATE AMINO TRANSFERASE 24 U/L (10-37); BILIRUBIN,TOTAL 0.8 MG/DL (0.1-1.0); BLOOD UREA NITROGEN 39 MG/DL (7-18); BUN/CREATININE RATIO 6.6 (5.4-32.0); CALCIUM 8.8 MG/DL (8.5-10.1); CHLORIDE 96 MMOL/L (99-107); CREATININE 5.94 MG/DL (0.60-1.10); GLUCOSE 101 MG/DL (70-104); POTASSIUM 5.8 MMOL/L (3.5-5.1); SODIUM 128 MMOL/L (135-145); TOTAL CARBON DIOXIDE 27.4 MMOL/L (24-32); TOTAL PROTEIN 6.5 G/DL (6.4-8.2); eGFR 9 ML/MIN
[2022-03-01] MEDS ORDERED: HYDROmorphone 2mg tablet PO STA (16:25)
--- NOTE | 2022-03-01 17:25 | NUR ---
NON BLANCHABLE REDNESS TO SACRAL AREA, SKIN STILL INTACT,PT TURNED TO RIGHT SIDE.DAUGHTER AT BEDSIDE.
[2022-03-01] MEDS ORDERED: magnesium 4gm in 100ml NS 100 ML IV PRN (20:25)
[2022-03-01] MEDS ORDERED: acetaminophen 325mg tablet PO PRN ×2 (20:25)
[2022-03-01] MEDS ORDERED: diphenhydrAMINE 25mg capsule PO PRN (20:25)
[2022-03-01] MEDS ORDERED: HYDROcodone/acetaminophen 5mg/325mg tablet PO PRN (20:25)
[2022-03-01] MEDS ORDERED: magnesium hydroxide 30ml (MOM) UD suspension PO PRN (20:25)
[2022-03-01] MEDS ORDERED: magnesium Cl slow-release 64mg tablet PO PRN (20:25)
[2022-03-01] MEDS ORDERED: acetaminophen 650mg rectal suppository RC PRN (20:25)
[2022-03-01] MEDS ORDERED: POTASSIUM BICARB 20meq eff tab 20 MEQ TABLET.EFF PO PRN ×2 (20:25)
[2022-03-01] MEDS ORDERED: bisacodyl 10mg suppository rectal RC PRN (20:25)
[2022-03-01] MEDS ORDERED: ondansetron/PF 4mg/2ml inj IV PRN (20:25)
[2022-03-01] MEDS ORDERED: potassium CL 10mEq/100ml bag 100 ML IV PRN (20:25)
[2022-03-01] MEDS ORDERED: magnesium 2GM in 50ml NS 50 ML IV PRN (20:25)
[2022-03-01] MEDS ORDERED: mag hydrox/Alum hydrox/simeth 30ml oral suspension PO PRN (20:25)
[2022-03-01] MEDS ORDERED: HYDROcodone/acetaminophen 10/325mg tab PO PRN (20:25)
[2022-03-01] MEDS ORDERED: morphine 2 MG/ML inj. syringe IV PRN (20:25)
--- NOTE | 2022-03-01 20:40 | NUR ---
PT AND FAMILY WISH TO HAVE MORE INFORMATION ABOUT OBTAINING A GI TUBE. PT LASHANDALEY EATS PER FAMILY. PT AGREED TO EXPLORE OPTIONS AND WANTS TO TALK TO A DOCTOR ABOUT IT.
[2022-03-01] MEDS ORDERED: temazepam 15mg capsule PO PRN (21:00)
[2022-03-01] MEDS ORDERED: NYSPWD TOP (21:20)
[2022-03-01] MEDS ORDERED: PANT-47 PO (21:20)
[2022-03-01] MEDS ORDERED: [UNRECOGNIZED DRUG - CODE] IV (21:20)
[2022-03-01] MEDS ORDERED: METO25TA6 PO (21:20)
[2022-03-01] MEDS ORDERED: AMIO400T5 PO (21:24)
[2022-03-01] MEDS ORDERED: SERT100T PO (21:24)
[2022-03-01] MEDS ORDERED: HYDR1LIQ3 PO (21:26)
[2022-03-01] MEDS: K and/or MAG REPLACEMENT MC SCH (22:40)
--- NOTE | 2022-03-01 22:45 | NUR ---
PT COMPLAING OF 7/10 PAIN STATES HIS BACK AND COCCYX HURT BUT HE IS "ALWAYS IN PAIN" REQUESTED DILAUDID FOR PAIN AND STATES IT ALSO HELPS HIM WITH HIS ANXIETY.
[2022-03-01] MEDS: HYDROmorphone 2mg tablet PO PRN (22:49)
--- NOTE | 2022-03-01 22:50 | NUR ---
PT'S DAUGHTER STATES SHE DOES NOT WANT HIM TO STAY IN A GURNEY DUE TO HAVING A DECUBITIS ULCER. REQUESTED HOSPITAL BED FROM [facility]
[2022-03-02] MEDS ORDERED: QUET25TA36 PO
[2022-03-02] MEDS ORDERED: OXYC1TAB17 PO
[2022-03-02] MEDS ORDERED: APIX5TAB3 PO
[2022-03-02] MEDS ORDERED: ALB0.5UD INH
[2022-03-02] MEDS ORDERED: AMLO2.5T2 PO
[2022-03-02] MEDS ORDERED: ACET325T PO
[2022-03-02] MEDS ORDERED: POLY17PO59 PO
[2022-03-02] MEDS ORDERED: MELA3TAB39 PO
[2022-03-02] MEDS ORDERED: EPOE10008 IV
[2022-03-02] MEDS ORDERED: [UNRECOGNIZED DRUG - CODE] IV
[2022-03-02] MEDS ORDERED: DOCU283E2 PR
[2022-03-02] MEDS ORDERED: SERT-153 PO (00:14)
[2022-03-02] MEDS ORDERED: ASPI-100 PO (00:14)
[2022-03-02] MEDS ORDERED: oxyCODONE/APAP 10/325mg tablet PO PRN (00:20)
[2022-03-02] MEDS ORDERED: albuterol 2.5 MG/3 ML nebule NEB PRN (00:30)
--- NOTE | 2022-03-02 06:07 | NUR ---
pt repositioned onto R side to alleviate pressure on coccyx. pt stated he still did not need to urinate.
--- NOTE | 2022-03-02 06:45 | NUR ---
Pt sleeping, no apparent distress or needs at this time.
[2022-03-02] MEDS: aspirin 325mg tablet PO SCH (07:56)
[2022-03-02] MEDS: docusate sod 100mg capsule PO SCH ×2 (07:56→20:00)
[2022-03-02] MEDS: QUEtiapine 25mg tablet PO SCH ×2 (07:57→21:42)
[2022-03-02] MEDS: pantoprazole 40mg Tablet.DR PO SCH (07:57)
[2022-03-02] MEDS: amLODIPine 2.5mg tablet PO SCH (07:58)
[2022-03-02] MEDS: metoprolol tartrate 25mg tablet PO SCH ×2 (07:58→21:43)
[2022-03-02] MEDS: sertraline 50mg tablet PO SCH (07:59)
--- NOTE | 2022-03-02 08:00 | NUR ---
Harrison jeff in ED - 03/02/22 at 0943 by [email or web address] Assessed pt. Assisted pt with using a urinal. Pt requesting pt medication. Will give pt Dilaudid for pain control
[2022-03-02] MEDS: HYDROmorphone 2mg tablet PO PRN ×3 (08:14→21:43)
--- NOTE | 2022-03-02 08:16 | NUR ---
Assessed pt this morning. Pt in Afib on monitor, states pain 6/10, gave Dilaudid PO, turned and repositioned pt. Pt has a central line in R chest, pt states it was from recent surgery.
--- NOTE | 2022-03-02 08:20 | NUR ---
Pt refused morning breakfast. Has been taking sips of water.
--- NOTE | 2022-03-02 09:33 | NUR ---
Pt had a large liquid brown foul smelling stool. Pt cleaned up and linens changed. Sample taken to lab.
--- NOTE | 2022-03-02 09:34 | NUR ---
Pt's lungs sound wet. Pt states cough is not new, but has had it "since all this happened."
--- NOTE | 2022-03-02 09:35 | NUR ---
Also, perineal area is red and inflammed. Diaper applied. dressing on buttocks still C/D/I.
[2022-03-02] MEDS ORDERED: acetaminophen 325mg tablet PO PRN (09:45)
[2022-03-02] MEDS ORDERED: EPOETIN ALFA-EPBX 20,000 UNIT/ML 1 ML MDV IV PRN (09:45)
[2022-03-02] MEDS ORDERED: DOCUSATE SODIUM PR PRN (09:45)
[2022-03-02] MEDS ORDERED: polyethylene glycol 3350 17gm powd pack PO PRN (09:45)
[2022-03-02 10:38] LABS: ALANINE AMINOTRANSFERASE 10 U/L (12-78); ALBUMIN 1.8 G/DL (3.4-5.0); ALBUMIN/GLOBULIN RATIO 0.4 (1.1-1.5); ALKALINE PHOSPHATASE 141 IU/L (46-116); ANION GAP 10 (8-16); ASPARTATE AMINO TRANSFERASE 23 U/L (10-37); BASOPHILS % (AUTO) 0.2 % (0-1); BILIRUBIN,TOTAL 0.9 MG/DL (0.1-1.0); BLOOD UREA NITROGEN 49 MG/DL (7-18); BUN/CREATININE RATIO 7.1 (5.4-32.0); CALCIUM 8.9 MG/DL (8.5-10.1); CHLORIDE 93 MMOL/L (99-107); CHOL/HDL RATIO 4.2 (0.00-4.99); CHOLESTEROL 147 MG/DL (0-200); CREATININE 6.88 MG/DL (0.60-1.10); EOSINOPHILS # (AUTO) 0.1 X10'3 (0-0.9); EOSINOPHILS % (AUTO) 0.7 % (0-6); GLUCOSE 82 MG/DL (70-104); HDL CHOLESTEROL 35 MG/DL (35-60); HEMOGLOBIN 9.5 g/dl (14.0-17.9); LDL CHOLESTEROL 83 MG/DL (50-100); LYMPHOCYTES # (AUTO) 0.3 X10'3 (1.1-4.8); MEAN CORPUSCULAR HEMOGLOBIN 30.2 PG (27.0-31.0); MEAN CORPUSCULAR HGB CONC 32.8 g/dL (33.0-36.5); MEAN PLATELET VOLUME 8.5 FL (7.4-10.4); MONOCYTES # (AUTO) 0.6 X10'3 (0-0.9); MONOCYTES % (AUTO) 6.8 % (2-12); NEUTROPHILS # (AUTO) 8.1 X10'3 (1.8-7.7); NEUTROPHILS % (AUTO) 89.3 % (42-75); PHOSPHORUS 7.2 MG/DL (2.3-4.5); PLATELET COUNT 196 X10'3 (140-440); RED BLOOD COUNT 3.16 X10'6 (4.70-6.10); RED CELL DISTRIBUTION WIDTH 17.9 % (11.5-14.5); SODIUM 127 MMOL/L (135-145); TOTAL CARBON DIOXIDE 24.1 MMOL/L (24-32); TOTAL PROTEIN 6.1 G/DL (6.4-8.2); TRIGLYCERIDES 106 MG/DL (20-135); WHITE BLOOD COUNT 9.1 X10'3 (4.5-11.0); eGFR 8 ML/MIN
[2022-03-02 10:39] LABS: POTASSIUM 6.5 MMOL/L (3.5-5.1)
--- NOTE | 2022-03-02 10:44 | NUR ---
Paged Dr Guzman- ER bed 1. [place]- Critical lab: K+6.5. We have order for Kayexalate, do you want anything else? Daphne [phone]
[2022-03-02] MEDS: amiodarone 200mg tablet PO SCH (10:50)
[2022-03-02] MEDS ORDERED: sodium polystyrene sulfonate 15gm/60ml oral suspension PO ONE (11:00)
[2022-03-02 11:06] LABS: C DIFF SPECIMEN=DIARRHEA? ACCEPTABLE; C DIFFICILE TOXINS A&B NEGATIVE (Neg)
[2022-03-02] MEDS ORDERED: heparin 10,000 units/1 ML INJ IV PRN (11:35)
[2022-03-02] MEDS: HYDROmorphone 1mg tablet (1/2 of 2mg tablet) PO SCH ×3 (12:00→20:00)
[2022-03-02 12:43] LABS: APTT 37 SECONDS (22-32)
--- NOTE | 2022-03-02 12:44 | NUR ---
Patient in room ED 1. I have received report from Geraldine NOLAND and had the opportunity to ask questions and assume patient care.
[2022-03-02 12:45] LABS: BASOPHILS % (AUTO) 0.2 % (0-1); EOSINOPHILS # (AUTO) 0.1 X10'3 (0-0.9); EOSINOPHILS % (AUTO) 0.6 % (0-6); HEMATOCRIT 28.3 % (42.0-52.0); HEMOGLOBIN 9.2 g/dl (14.0-17.9); LYMPHOCYTES # (AUTO) 0.2 X10'3 (1.1-4.8); LYMPHOCYTES % (AUTO) 2.8 % (21-51); MEAN CORPUSCULAR HEMOGLOBIN 29.6 PG (27.0-31.0); MEAN CORPUSCULAR HGB CONC 32.6 g/dL (33.0-36.5); MEAN PLATELET VOLUME 8.2 FL (7.4-10.4); MONOCYTES # (AUTO) 0.6 X10'3 (0-0.9); NEUTROPHILS # (AUTO) 7.9 X10'3 (1.8-7.7); NEUTROPHILS % (AUTO) 89.4 % (42-75); PLATELET COUNT 198 X10'3 (140-440); RED BLOOD COUNT 3.11 X10'6 (4.70-6.10); RED CELL DISTRIBUTION WIDTH 17.8 % (11.5-14.5); WHITE BLOOD COUNT 8.8 X10'3 (4.5-11.0)
--- NOTE | 2022-03-02 13:05 | NUR ---
PER DR. SELF START HEPARIN GTT WITHOUT LOADING DOSE
[2022-03-02 13:08] VITALS: BP 132/71
[2022-03-02] MEDS: heparin 25,000 UNIT/250ml bag 250 ML IV SCH (13:08)
[2022-03-02] MEDS ORDERED: EPOETIN ALFA-EPBX 20,000 UNIT/ML 1 ML MDV IV ONE (14:55)
[2022-03-02] MEDS ORDERED: heparin 1,000 units/ml 10ml inj IV ONE (14:55)
[2022-03-02] MEDS ORDERED: heparin 1,000unit/ml 10ml vial 10 ML IV ONE (14:55)
[2022-03-02] MEDS ORDERED: albumin (human) 25% 100ml IV 100 ML IV PRN (14:55)
[2022-03-02] MEDS ORDERED: heparin 1,000 units/ml 10ml inj HE ONE ×2 (14:55)
[2022-03-02 15:00] VITALS: BP 128/78
[2022-03-02 18:00] VITALS: BP 132/76
--- NOTE | 2022-03-02 18:09 | NUR ---
Problems reprioritized. Patient report given, questions answered & plan of care reviewed with Ha RN. Patient resting in bed in no acute distress. HD in progress. HD RN and at bedside.
[2022-03-02] MEDS: K and/or MAG REPLACEMENT MC SCH (18:33)
[2022-03-02] MEDS: nystatin 15 GM powder TP SCH (20:00)
[2022-03-02] MEDS: Melatonin 3mg tablet PO SCH (21:43)
[2022-03-02 22:00] VITALS: BP 129/64
[2022-03-03 02:00] VITALS: BP 121/65
[2022-03-03] MEDS: HYDROmorphone 1mg tablet (1/2 of 2mg tablet) PO SCH ×5 (04:35→16:34)
[2022-03-03 05:57] LABS: BASOPHILS % (AUTO) 0.2 % (0-1); EOSINOPHILS # (AUTO) 0.1 X10'3 (0-0.9); EOSINOPHILS % (AUTO) 2.1 % (0-6); HEMATOCRIT 28.4 % (42.0-52.0); HEMOGLOBIN 9.1 g/dl (14.0-17.9); LYMPHOCYTES # (AUTO) 0.3 X10'3 (1.1-4.8); LYMPHOCYTES % (AUTO) 6.5 % (21-51); MEAN CORPUSCULAR HEMOGLOBIN 30.3 PG (27.0-31.0); MEAN CORPUSCULAR HGB CONC 32.1 g/dL (33.0-36.5); MEAN CORPUSCULAR VOLUME 94.4 FL (78-98); MEAN PLATELET VOLUME 8.1 FL (7.4-10.4); MONOCYTES # (AUTO) 0.5 X10'3 (0-0.9); MONOCYTES % (AUTO) 9.9 % (2-12); NEUTROPHILS # (AUTO) 4.2 X10'3 (1.8-7.7); NEUTROPHILS % (AUTO) 81.3 % (42-75); PLATELET COUNT 177 X10'3 (140-440); RED CELL DISTRIBUTION WIDTH 18.4 % (11.5-14.5); WHITE BLOOD COUNT 5.2 X10'3 (4.5-11.0)
[2022-03-03 06:21] LABS: ALANINE AMINOTRANSFERASE 12 U/L (12-78); ALBUMIN 1.7 G/DL (3.4-5.0); ALBUMIN/GLOBULIN RATIO 0.4 (1.1-1.5); ALKALINE PHOSPHATASE 169 IU/L (46-116); ANION GAP 6 (8-16); ASPARTATE AMINO TRANSFERASE 21 U/L (10-37); BILIRUBIN,TOTAL 0.7 MG/DL (0.1-1.0); BLOOD UREA NITROGEN 30 MG/DL (7-18); CALCIUM 8.1 MG/DL (8.5-10.1); CHLORIDE 97 MMOL/L (99-107); CREATININE 5.04 MG/DL (0.60-1.10); GLUCOSE 103 MG/DL (70-104); MAGNESIUM 1.8 MG/DL (1.5-2.4); PHOSPHORUS 6.3 MG/DL (2.3-4.5); POTASSIUM 4.5 MMOL/L (3.5-5.1); SODIUM 131 MMOL/L (135-145); TOTAL CARBON DIOXIDE 28.2 MMOL/L (24-32); TOTAL PROTEIN 5.9 G/DL (6.4-8.2); eGFR 11 ML/MIN
[2022-03-03 07:00] VITALS: BP 115/62
[2022-03-03] MEDS: docusate sod 100mg capsule PO SCH ×2 (08:00→19:39)
[2022-03-03] MEDS: K and/or MAG REPLACEMENT MC SCH ×2 (08:00→18:36)
[2022-03-03] MEDS: amLODIPine 2.5mg tablet PO SCH (08:34)
[2022-03-03] MEDS: amiodarone 200mg tablet PO SCH (08:34)
[2022-03-03] MEDS: sertraline 50mg tablet PO SCH (08:34)
[2022-03-03] MEDS: metoprolol tartrate 25mg tablet PO SCH ×2 (08:34→19:46)
[2022-03-03] MEDS: aspirin 325mg tablet PO SCH (08:35)
[2022-03-03] MEDS: nystatin 15 GM powder TP SCH ×2 (08:35→19:46)
[2022-03-03] MEDS: pantoprazole 40mg Tablet.DR PO SCH (08:35)
[2022-03-03] MEDS: QUEtiapine 25mg tablet PO SCH ×2 (08:35→19:45)
--- NOTE | 2022-03-03 10:53 | NUR ---
page to echo #2 [id number]. Pt has order for echo. Thanks Denise [phone]
[2022-03-03 11:00] VITALS: BP 113/77
--- NOTE | 2022-03-03 11:57 | NUR ---
page to Seth Lynne regarding angiogram: [phone] Miles. Does pt need to be NPO for angiogram this afternoon? Denise [phone]
[2022-03-03] MEDS: heparin 25,000 UNIT/250ml bag 250 ML IV SCH (12:38)
--- NOTE | 2022-03-03 13:23 | NUR ---
PRESSURE ULCER EDUCATION: DEFINITION: A pressure ulcer is an area of skin that breaks down when you stay in one position too long. The constant pressure against the skin reduces the blood flow to that area and the affected tissue dies. CAUSES: "Being bedridden or in a wheelchair "Fragile skin "Having a chronic condition, such as diabetes or vascular disease "Inability to move certain parts of your body without assistance "Older age "Incontinence of urine or stool SYMPTOMS: "A reddened area that DOES NOT turn white when pressed on - this can be the beginning of a pressure ulcer "A blister, deep sore or a crater - these can be advanced pressure ulcers FIRST AID: "Relieve the pressure on this area "Keep the area clean and dry "Call your primary doctor if you see any of the above symptoms "DO NOT massage the area "DO NOT use a donut shaped or ring shaped pillow- these actually interfere with the blood flow and cause complications PREVENTION: "Check for pressure ulcers everyday "Change position at least every two hours to relieve pressure "Use items that help relieve pressure- pillows, sheepskin, foam padding, and powders. "Keep skin clean and dry "Eat healthy well balanced meals "Exercise daily IF YOU SEE ANY OF THESE SYMPTOMS WHILE IN THE HOSPITAL - TELL YOUR NURSE IMMEDIATELY. IF YOU SEE ANY OF THESE SYMPTOMS WHILE AT HOME OR HAVE ANY QUESTIONS OR CONCERNS ABOUT PRESSURE ULCERS - CALL YOUR PRIMARY DOCTOR IMMEDIATELY. Addendum: 03/03/22 at 1324 by Viry Bella LVN Amended: Links added.
--- NOTE | 2022-03-03 13:27 | NUR ---
Malnutrition consult: Pt admitted w/ NSTEMI and ESRD on HD per EMR. Pt was at this hospital very recently w/ initial course on 01/31. Since that time, pt had very poor PO intake of meals and developed malnutrition. Pt still meets minimum criteria for malnutrition given insufficient PO intake for 1 month and mild muscle weakness, MD notified. RN states that pt was eating a little better this admit, apparently his brought him pizza which he ate well. Currently on Renal diet w/ 0% intake of first meal and 25% intake of first. RN states that pt had at least 75% of breakfast this morning. Recommend liberalizing to Regular diet given hx of very poor PO intake. Pt continues on HD, last treatment 03/02 w/ 2L out per documentation. Noted pt's bed scale wt on 02/28 was 97kg, current wt likely inaccurate. Pt also noted w/ open wound to sacrum, WOC pending. Will continue to monitor. Recs; 1. Liberalize to Regular diet in view of prolonged poor PO intake 2. Monitor need for ONS pending further PO trends; pt does not like Nepro 3. Bowel care per rx 4. Scaled wts w/ HD Addendum: 03/03/22 at [address] Amended: Links added.
[2022-03-03 15:00] VITALS: BP 107/58
[2022-03-03] MEDS ORDERED: HYDROmorphone 2mg tablet PO PRN (16:56)
[2022-03-03 18:00] VITALS: BP 115/72
--- NOTE | 2022-03-03 18:17 | NUR ---
Problems reprioritized. Patient report given, questions answered & plan of care reviewed with Ha NOLAND. Pt in no acute distress.
[2022-03-03] MEDS: apixaban 5mg tablet PO SCH (19:45)
[2022-03-03] MEDS: Melatonin 3mg tablet PO SCH (19:46)
[2022-03-03 22:00] VITALS: BP 121/68
[2022-03-04 02:00] VITALS: BP 111/71
[2022-03-04 06:04] LABS: BASOPHILS % (AUTO) 0.2 % (0-1); EOSINOPHILS # (AUTO) 0.2 X10'3 (0-0.9); EOSINOPHILS % (AUTO) 3.1 % (0-6); HEMATOCRIT 27.1 % (42.0-52.0); LYMPHOCYTES # (AUTO) 0.4 X10'3 (1.1-4.8); LYMPHOCYTES % (AUTO) 7.1 % (21-51); MEAN CORPUSCULAR HEMOGLOBIN 30.4 PG (27.0-31.0); MEAN CORPUSCULAR HGB CONC 33.3 g/dL (33.0-36.5); MEAN CORPUSCULAR VOLUME 91.6 FL (78-98); MEAN PLATELET VOLUME 8.4 FL (7.4-10.4); MONOCYTES # (AUTO) 0.6 X10'3 (0-0.9); NEUTROPHILS # (AUTO) 3.9 X10'3 (1.8-7.7); NEUTROPHILS % (AUTO) 78.6 % (42-75); PLATELET COUNT 178 X10'3 (140-440); RED BLOOD COUNT 2.96 X10'6 (4.70-6.10); RED CELL DISTRIBUTION WIDTH 18.2 % (11.5-14.5)
[2022-03-04 06:21] LABS: ALANINE AMINOTRANSFERASE 12 U/L (12-78); ALBUMIN 1.8 G/DL (3.4-5.0); ALBUMIN/GLOBULIN RATIO 0.4 (1.1-1.5); ALKALINE PHOSPHATASE 173 IU/L (46-116); ANION GAP 8 (8-16); ASPARTATE AMINO TRANSFERASE 19 U/L (10-37); BILIRUBIN,TOTAL 0.6 MG/DL (0.1-1.0); BLOOD UREA NITROGEN 39 MG/DL (7-18); BUN/CREATININE RATIO 6.4 (5.4-32.0); CALCIUM 8.5 MG/DL (8.5-10.1); CHLORIDE 92 MMOL/L (99-107); CREATININE 6.09 MG/DL (0.60-1.10); GLUCOSE 111 MG/DL (70-104); MAGNESIUM 1.7 MG/DL (1.5-2.4); PHOSPHORUS 6.9 MG/DL (2.3-4.5); POTASSIUM 4.5 MMOL/L (3.5-5.1); SODIUM 127 MMOL/L (135-145); TOTAL CARBON DIOXIDE 26.8 MMOL/L (24-32); TOTAL PROTEIN 5.9 G/DL (6.4-8.2); eGFR 9 ML/MIN
[2022-03-04 07:00] VITALS: BP 134/83
[2022-03-04] MEDS: nystatin 15 GM powder TP SCH ×2 (08:00→20:00)
[2022-03-04] MEDS: K and/or MAG REPLACEMENT MC SCH ×2 (08:00→18:53)
[2022-03-04] MEDS: apixaban 5mg tablet PO SCH ×2 (08:58→21:18)
[2022-03-04] MEDS: sertraline 50mg tablet PO SCH (08:59)
[2022-03-04] MEDS: pantoprazole 40mg Tablet.DR PO SCH (08:59)
[2022-03-04] MEDS: atorvastatin 20mg tablet PO SCH ×2 (08:59→21:18)
[2022-03-04] MEDS: amiodarone 200mg tablet PO SCH (08:59)
[2022-03-04] MEDS: QUEtiapine 25mg tablet PO SCH ×2 (08:59→21:21)
[2022-03-04] MEDS: aspirin 81mg tab.chew PO SCH (08:59)
[2022-03-04] MEDS: amLODIPine 2.5mg tablet PO SCH (09:00)
[2022-03-04] MEDS: metoprolol tartrate 25mg tablet PO SCH ×2 (09:00→21:21)
[2022-03-04] MEDS: docusate sod 100mg capsule PO SCH ×2 (09:01→21:18)
[2022-03-04] MEDS ORDERED: heparin 1,000unit/ml 10ml vial 10 ML IV ONE (10:15)
[2022-03-04] MEDS ORDERED: EPOETIN ALFA-EPBX 20,000 UNIT/ML 1 ML MDV IV ONE ×2 (10:15→12:35)
[2022-03-04] MEDS ORDERED: heparin 1,000 units/ml 10ml inj IV ONE (10:15)
[2022-03-04] MEDS ORDERED: heparin 1,000 units/ml 10ml inj HE ONE ×3 (10:20→12:35)
[2022-03-04] MEDS: morphine 10 MG/5 ML UD oral solution PO PRN ×3 (10:33→21:18)
[2022-03-04 11:00] VITALS: BP 106/65
[2022-03-04] MEDS ORDERED: HEPARIN IV ONE ×2 (12:35)
[2022-03-04] MEDS ORDERED: ondansetron 4mg rapidly disintigrating tab PO PRN (13:55)
[2022-03-04 15:00] VITALS: BP 121/82
[2022-03-04 18:00] VITALS: BP 116/62
--- NOTE | 2022-03-04 18:23 | NUR ---
Problems reprioritized. Patient report given, questions answered & plan of care reviewed with Ha RN. Patient resting in no acute distress.
[2022-03-04] MEDS: Melatonin 3mg tablet PO SCH (21:18)
[2022-03-04 22:00] VITALS: BP 122/71
[2022-03-05 02:00] VITALS: BP 118/65
[2022-03-05 06:00] VITALS: BP 114/77
[2022-03-05 06:02] LABS: BASOPHILS % (AUTO) 0.3 % (0-1); EOSINOPHILS # (AUTO) 0.1 X10'3 (0-0.9); EOSINOPHILS % (AUTO) 2.8 % (0-6); HEMATOCRIT 28.5 % (42.0-52.0); HEMOGLOBIN 9.3 g/dl (14.0-17.9); LYMPHOCYTES # (AUTO) 0.4 X10'3 (1.1-4.8); LYMPHOCYTES % (AUTO) 8.7 % (21-51); MEAN CORPUSCULAR HEMOGLOBIN 30.4 PG (27.0-31.0); MEAN CORPUSCULAR HGB CONC 32.6 g/dL (33.0-36.5); MEAN PLATELET VOLUME 8.1 FL (7.4-10.4); MONOCYTES # (AUTO) 0.6 X10'3 (0-0.9); MONOCYTES % (AUTO) 11.4 % (2-12); NEUTROPHILS % (AUTO) 76.8 % (42-75); PLATELET COUNT 197 X10'3 (140-440); RED BLOOD COUNT 3.06 X10'6 (4.70-6.10); RED CELL DISTRIBUTION WIDTH 18.3 % (11.5-14.5); WHITE BLOOD COUNT 5.2 X10'3 (4.5-11.0)
[2022-03-05 06:21] LABS: ALANINE AMINOTRANSFERASE 15 U/L (12-78); ALBUMIN 1.8 G/DL (3.4-5.0); ALBUMIN/GLOBULIN RATIO 0.4 (1.1-1.5); ALKALINE PHOSPHATASE 167 IU/L (46-116); ANION GAP 2 (8-16); ASPARTATE AMINO TRANSFERASE 20 U/L (10-37); BILIRUBIN,TOTAL 0.6 MG/DL (0.1-1.0); BLOOD UREA NITROGEN 22 MG/DL (7-18); BUN/CREATININE RATIO 5.2 (5.4-32.0); CALCIUM 8.1 MG/DL (8.5-10.1); CHLORIDE 98 MMOL/L (99-107); CREATININE 4.27 MG/DL (0.60-1.10); GLUCOSE 101 MG/DL (70-104); MAGNESIUM 1.7 MG/DL (1.5-2.4); PHOSPHORUS 5.7 MG/DL (2.3-4.5); POTASSIUM 4.1 MMOL/L (3.5-5.1); SODIUM 131 MMOL/L (135-145); TOTAL CARBON DIOXIDE 31.3 MMOL/L (24-32); eGFR 14 ML/MIN
[2022-03-05] MEDS: docusate sod 100mg capsule PO SCH ×2 (08:00→20:23)
[2022-03-05] MEDS: K and/or MAG REPLACEMENT MC SCH ×2 (08:00→20:00)
[2022-03-05] MEDS: QUEtiapine 25mg tablet PO SCH ×2 (08:49→20:23)
[2022-03-05] MEDS: aspirin 81mg tab.chew PO SCH (08:50)
[2022-03-05] MEDS: amiodarone 200mg tablet PO SCH (08:50)
[2022-03-05] MEDS: apixaban 5mg tablet PO SCH ×2 (08:50→20:38)
[2022-03-05] MEDS: sertraline 50mg tablet PO SCH (08:50)
[2022-03-05] MEDS: metoprolol tartrate 25mg tablet PO SCH ×2 (08:51→20:23)
[2022-03-05] MEDS: pantoprazole 40mg Tablet.DR PO SCH (08:51)
[2022-03-05] MEDS: amLODIPine 2.5mg tablet PO SCH (08:51)
[2022-03-05] MEDS: nystatin 15 GM powder TP SCH ×2 (08:56→20:24)
[2022-03-05 11:00] VITALS: BP 129/80
--- NOTE | 2022-03-05 14:40 | NUR ---
Shad Consult: Helio Kulkarni 12 w/ IAD and gluteal sulcus partial thickness area otherwise skin intact per [facility] note. Addendum: 03/05/22 at [address] Amended: Links added.
[2022-03-05 15:00] VITALS: BP 112/69
[2022-03-05 18:00] VITALS: BP 149/89
--- NOTE | 2022-03-05 18:25 | NUR ---
Pt reports of chest tightness. No pain. VS WNL. Will administer nitro.
[2022-03-05] MEDS: nitroGLYCERIN 0.4mg SUBLingual tab SL PRN (18:27)
--- NOTE | 2022-03-05 18:30 | NUR ---
Problems reprioritized. Patient report given, questions answered & plan of care reviewed with NUZHAT Bonner - Ha is aware of chest tightness and was there during VS. .
[2022-03-05] MEDS: Melatonin 3mg tablet PO SCH (20:24)
[2022-03-05] MEDS: morphine 10 MG/5 ML UD oral solution PO PRN (20:25)
[2022-03-05 22:00] VITALS: BP 132/71
[2022-03-06] MEDS: nitroGLYCERIN 0.4mg SUBLingual tab SL PRN (01:10)
[2022-03-06 02:00] VITALS: BP 126/69
[2022-03-06 06:00] VITALS: BP 150/92
[2022-03-06 06:15] LABS: BASOPHILS % (AUTO) 0.3 % (0-1); EOSINOPHILS # (AUTO) 0.2 X10'3 (0-0.9); HEMATOCRIT 27.3 % (42.0-52.0); LYMPHOCYTES # (AUTO) 0.4 X10'3 (1.1-4.8); LYMPHOCYTES % (AUTO) 5.2 % (21-51); MEAN CORPUSCULAR HEMOGLOBIN 30.6 PG (27.0-31.0); MEAN CORPUSCULAR HGB CONC 32.9 g/dL (33.0-36.5); MEAN PLATELET VOLUME 8.2 FL (7.4-10.4); MONOCYTES # (AUTO) 0.6 X10'3 (0-0.9); MONOCYTES % (AUTO) 7.6 % (2-12); NEUTROPHILS # (AUTO) 6.5 X10'3 (1.8-7.7); NEUTROPHILS % (AUTO) 84.9 % (42-75); PLATELET COUNT 204 X10'3 (140-440); RED BLOOD COUNT 2.94 X10'6 (4.70-6.10); RED CELL DISTRIBUTION WIDTH 18.2 % (11.5-14.5); WHITE BLOOD COUNT 7.6 X10'3 (4.5-11.0)
[2022-03-06 06:25] LABS: ALANINE AMINOTRANSFERASE 13 U/L (12-78); ALBUMIN 1.8 G/DL (3.4-5.0); ALBUMIN/GLOBULIN RATIO 0.4 (1.1-1.5); ALKALINE PHOSPHATASE 165 IU/L (46-116); ANION GAP 2 (8-16); ASPARTATE AMINO TRANSFERASE 17 U/L (10-37); BILIRUBIN,TOTAL 0.6 MG/DL (0.1-1.0); BLOOD UREA NITROGEN 31 MG/DL (7-18); BUN/CREATININE RATIO 5.8 (5.4-32.0); CALCIUM 8.2 MG/DL (8.5-10.1); CHLORIDE 92 MMOL/L (99-107); CREATININE 5.32 MG/DL (0.60-1.10); GLUCOSE 111 MG/DL (70-104); MAGNESIUM 1.6 MG/DL (1.5-2.4); PHOSPHORUS 6.6 MG/DL (2.3-4.5); POTASSIUM 5.1 MMOL/L (3.5-5.1); SODIUM 123 MMOL/L (135-145); TOTAL PROTEIN 5.9 G/DL (6.4-8.2); eGFR 11 ML/MIN
[2022-03-06] MEDS ORDERED: normal saline 1000ml 250 ML IV PRN (07:10)
[2022-03-06] MEDS ORDERED: EPOETIN ALFA-EPBX 20,000 UNIT/ML 1 ML MDV IV ONE (07:10)
[2022-03-06] MEDS ORDERED: heparin 1,000unit/ml 10ml vial 10 ML IV ONE (07:10)
[2022-03-06] MEDS ORDERED: heparin 1,000 units/ml 10ml inj HE ONE ×2 (07:15)
[2022-03-06] MEDS: amLODIPine 2.5mg tablet PO SCH (08:00)
[2022-03-06] MEDS: metoprolol tartrate 25mg tablet PO SCH (08:00)
[2022-03-06] MEDS: K and/or MAG REPLACEMENT MC SCH (08:00)
[2022-03-06] MEDS: nystatin 15 GM powder TP SCH (08:00)
[2022-03-06] MEDS: morphine 2 MG/ML inj. syringe IV PRN ×2 (08:12→15:42)
--- NOTE | 2022-03-06 08:15 | NUR ---
Missed dosed BP meds per HD nurse. MD Guzman aware.
[2022-03-06] MEDS: amiodarone 200mg tablet PO SCH (08:17)
[2022-03-06] MEDS: docusate sod 100mg capsule PO SCH (08:17)
[2022-03-06] MEDS: QUEtiapine 25mg tablet PO SCH (08:17)
[2022-03-06] MEDS: sertraline 50mg tablet PO SCH (08:17)
[2022-03-06] MEDS: apixaban 5mg tablet PO SCH (08:17)
[2022-03-06] MEDS: pantoprazole 40mg Tablet.DR PO SCH (08:17)
[2022-03-06] MEDS: atorvastatin 20mg tablet PO SCH (08:17)
[2022-03-06] MEDS: aspirin 81mg tab.chew PO SCH (08:18)
--- NOTE | 2022-03-06 10:40 | NUR ---
Reassessment: Pt continues on Renal diet w/ improvement in PO intake compared to last recent admit, avg intake 55% x 8 meals though only partially meeting needs. Food preferences d/w patient, see in recommendations below. Continues on HD, last treatment 03/04 w/ 2L out per documentation. LBM 03/04 receiving routine colace. Will continue to monitor. Recs; 1. Liberalize to Regular diet in view of prolonged poor PO intake 2. Sherbet BIDLD and extra White roll WS per pt preference; pt does not like Nepro 3. Bowel care per rx 4. Scaled wts w/ HD Addendum: 03/06/22 at [address] Amended: Links added.
[2022-03-06 11:00] VITALS: BP 112/68
[2022-03-06 15:00] VITALS: BP 118/72
--- NOTE | 2022-03-06 17:06 | NUR ---
[facility] Spoke with Concetta, nurse and gave report. All questions answered at this time. She would like for me to keep PIV in place. Agreed. P/u pends 1600
--- NOTE | 2022-03-06 18:00 | NUR ---
D/c wc pictures were taken and put in chart.
--- NOTE | 2022-03-06 18:20 | NUR ---
Pt stable for d/c Transport arrived to pickup patient. All personal belongings were sent with patient . Tele box was accidentally sent with patient. Called [facility], spoke with Rand, she will make sure the tele box is sent back with transport.
== END 2022-03-06 18:00 | DRG 280 ==
LOC: ER 14:31 → ED HOLD 20:30 → PCU 3S 03-02 12:50
PROVIDERS: ADMIT Family Medicine; ATTEND Family Medicine
PROC: 5A1D70Z Performance of Urinary Filtration, Intermittent, Less than 6 Hours Per Day (ICD-10-PCS; principal; 2022-03-02)
PROC: 5A1D70Z Performance of Urinary Filtration, Intermittent, Less than 6 Hours Per Day (ICD-10-PCS; 2022-03-04)
PROC: 5A1D70Z Performance of Urinary Filtration, Intermittent, Less than 6 Hours Per Day (ICD-10-PCS; 2022-03-06)
DX: I21.4 Non-ST elevation (NSTEMI) myocardial infarction (principal); N18.6 End stage renal disease; E87.1 Hypo-osmolality and hyponatremia; I13.2 Hypertensive heart and chronic kidney disease with heart failure and with stage 5 chronic kidney disease, or end stage renal disease; I48.92 Unspecified atrial flutter; I69.354 Hemiplegia and hemiparesis following cerebral infarction affecting left non-dominant side; I48.20 Chronic atrial fibrillation, unspecified; Z66 Do not resuscitate; E87.5 Hyperkalemia; K21.9 Gastro-esophageal reflux disease without esophagitis; I50.9 Heart failure, unspecified; I25.119 Atherosclerotic heart disease of native coronary artery with unspecified angina pectoris; L89.159 Pressure ulcer of sacral region, unspecified stage; D63.8 Anemia in other chronic diseases classified elsewhere; E78.00 Pure hypercholesterolemia, unspecified; E78.5 Hyperlipidemia, unspecified; F10.21 Alcohol dependence, in remission; F32.A Depression, unspecified; G47.33 Obstructive sleep apnea (adult) (pediatric); G89.4 Chronic pain syndrome; Z79.01 Long term (current) use of anticoagulants; Z99.2 Dependence on renal dialysis; Z79.899 Other long term (current) drug therapy; Z82.49 Family history of ischemic heart disease and other diseases of the circulatory system; Z86.79 Personal history of other diseases of the circulatory system; Z87.891 Personal history of nicotine dependence; Z88.0 Allergy status to penicillin; I69.392 Facial weakness following cerebral infarction
CPT/HCPCS: 36415; 71045; 80053; 80061; 83735; 83880; 84100; 84484; 85025; 85610; 85730; 87081; 87324; 87449; 90935; 93005; 93308; 94640; 94760; 97530; 99285; G0257; G0378; J1644; J2270; Q4081